=== PATIENT | female | born 1995 | race African-American/Black ===

== ENCOUNTER 2018-03-10 12:26 | Observation (INO) | payer MEDICAID ==
[~2018-03-10] VITALS: Ht 160 cm; Wt 68.0 kg
[2018-03-10] MEDS ORDERED: PNV1TABL76 MT (13:11)
== END 2018-03-10 14:15 | disposition home or self-care (01) ==
LOC: L&D 12:26
PROVIDERS: ADMIT Obstetrics & Gynecology; ATTEND Obstetrics & Gynecology
DX: O62.9 Abnormality of forces of labor, unspecified (principal); Z3A.34 34 weeks gestation of pregnancy
CPT/HCPCS: 99281; G0378